=== PATIENT | female | born 2000 | race Caucasian/White ===

== ENCOUNTER 2023-07-23 16:05 | Outpatient (CLI) | payer OTHER, SELFPAY | END 2023-07-23 16:06 | disposition home or self-care (01) | PROVIDERS: PCP Obstetrics & Gynecology; Visit Provider Family Medicine | DX: F32.A Depression, unspecified (principal); F41.9 Anxiety disorder, unspecified; F42.9 Obsessive-compulsive disorder, unspecified | CPT/HCPCS: 82306; 84443 ==

== ENCOUNTER 2023-10-15 13:49 | Outpatient (CLI) | payer OTHER, SELFPAY | END 2023-10-15 13:50 | disposition home or self-care (01) | LOC: NFLDREF 10-19 19:00 | PROVIDERS: PCP Family Medicine; Referring Provider Family Medicine; Visit Provider Family Medicine | DX: N39.0 Urinary tract infection, site not specified (principal) | CPT/HCPCS: 87086 ==